=== PATIENT | male | born 1960 | race Caucasian/White ===

== ENCOUNTER 2017-01-25 22:37 | Emergency (ER) | payer BC ==
[2017-01-25] MEDS ORDERED: Sodium Chloride 0.9% 1,000 ML IV ONE (22:56)
[2017-01-25] MEDS ORDERED: Sodium Chloride 0.9% 2.5 ML Syringe FLUSH PRN (22:56)
[2017-01-25] MEDS ORDERED: Sodium Chloride 0.9% 10 ML Syringe FLUSH PRN (22:56)
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
[2017-01-25] MEDS ORDERED: Iopamidol 755 MG/ML 500 ML Multipack Bottle IVPUSH STA (23:19)
[2017-01-26 00:26] LABS: CHLORIDE,CL 106 mmol/L (98-110); SODIUM,NA 139 mmol/L (136-146)
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
[2017-01-26 05:14] VITALS: BP 130/80
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
== END 2017-01-26 00:41 | disposition other institution (70) ==
LOC: MW.ED 22:37
DX: S22.41XA Multiple fractures of ribs, right side, initial encounter for closed fracture (principal); S32.502A Unspecified fracture of left pubis, initial encounter for closed fracture; S42.031A Displaced fracture of lateral end of right clavicle, initial encounter for closed fracture; S01.01XA Laceration without foreign body of scalp, initial encounter; S09.90XA Unspecified injury of head, initial encounter; E66.9 Obesity, unspecified; G43.909 Migraine, unspecified, not intractable, without status migrainosus; Z87.891 Personal history of nicotine dependence; Z68.34 Body mass index [BMI] 34.0-34.9, adult; Z79.82 Long term (current) use of aspirin; V86.59XA Driver of other special all-terrain or other off-road motor vehicle injured in nontraffic accident, initial encounter
CPT/HCPCS: 36415; 70450; 71260; 72125; 74177; 80053; 80305; 81001; 82150; 83690; 84484; 85025; 85610; 93005; 96360; 99285; G0390; G0480; J7040; Q9967

== ENCOUNTER 2017-07-13 12:41 | Emergency (ER) | payer SELFPAY ==
[2017-07-13] MEDS ORDERED: Sodium Chloride 0.9% 2.5 ML Syringe FLUSH PRN (12:55)
[2017-07-13] MEDS ORDERED: Sodium Chloride 0.9% 10 ML Syringe FLUSH PRN (12:55)
[2017-07-13] MEDS ORDERED: Albuterol/Ipratropium 3.0-0.5 MG/3 ML Neb Soln NEB ONE (12:55)
[2017-07-13] MEDS ORDERED: Furosemide 40 MG/4 ML VIAL IVPUSH ONE (13:05)
[2017-07-13] MEDS ORDERED: Sodium Chloride 0.9% 500 ML IV ONE (13:05)
[2017-07-13 13:28] LABS: CHLORIDE,CL 95 mmol/L (98-110); SODIUM,NA 137 mmol/L (136-146)
--- NOTE | 2017-07-13 13:41 | EDM.PDOC ---
ED HPI GENERAL MEDICAL PROBLEM - General Chief Complaint: Respiratory Problem Stated Complaint: short of breathe Time Seen by Provider: 07/13/17 12:54 Source of Information: Reports: Patient History Limitations: Reports: No Limitations - History of Present Illness INITIAL COMMENTS - FREE TEXT/NARRATIVE: History of present illness: []Patient has a history of PEs in the past for the last 5 days has had a cold symptoms with congestion and cough. Review of systems: As per history of present illness and below otherwise all systems reviewed and negative. Past medical history: As per history of present illness and as reviewed below otherwise noncontributory. Surgical history: As per history of present illness and as reviewed below otherwise noncontributory. Social history: No reported history of drug or alcohol abuse. Family history: As per history of present illness and as reviewed below otherwise noncontributory. Physical exam: General: Well developed, well nourished in mild respiratory stress, pallor see vital signs HEENT: Atraumatic, normocephalic, pupils reactive, negative for conjunctival pallor or scleral icterus, mucous membranes moist, throat clear, neck supple, nontender, trachea midline. Lungs: Decreased breath sounds at bases crackles throughout. Heart: S1S2, regular, negative for clicks, rubs, or JVD. 2+ pitting edema bilateral lower extremities Abdomen: Soft, nondistended, nontender. Negative for masses or hepatosplenomegaly. Negative for costovertebral tenderness. Pelvis: Stable nontender. Genitourinary: Deferred. Rectal: Deferred. Extremities: Atraumatic, negative for cords or calf pain. Neurovascular unremarkable. Neuro: Awake, alert, oriented. Cranial nerves II through XII unremarkable. Cerebellum unremarkable. Motor and sensory unremarkable throughout. Exam nonfocal. Diagnostics: []Labs chest x-ray and CT chest ordered bilateral large pulmonary emboli present in left upper consolidated infiltrate. Elevated lactic acid Therapeutics: []IV nebs supplemental oxygen and heparin given in the ED Impression: []Bilateral PEs Plan: []Transfer to ER Dr. Arenas accepts the patient. Definitive disposition and diagnosis as appropriate pending reevaluation and review of above. - Related Data Allergies Allergy/AdvReac Type Severity Reaction Status Date / Time animal dander Allergy Sneezing Verified 07/13/17 12:55 Home Meds: Home Meds Aspirin 1 tab PO DAILY 09/17/15 [History] Past Medical History - Past Health History Medical/Surgical History: Denies Medical/Surgical History HEENT History: Reports: Allergic Rhinitis, Impaired Vision, Other (See Below) Other HEENT History: wears reading glasses, has partial denture but does not wear Cardiovascular History: Reports: None Other Cardiovascular History: "clogged all heart valves" Respiratory History: Reports: Croup, PE Other Respiratory History: PE Gastrointestinal History: Reports: Cirrhosis Genitourinary History: Reports: None Musculoskeletal History: Reports: None Neurological History: Reports: Migraines Psychiatric History: Reports: None Endocrine/Metabolic History: Reports: Obesity/BMI 30+ Hematologic History: Reports: None Immunologic History: Reports: None Oncologic (Cancer) History: Reports: None Dermatologic History: Reports: None - Infectious Disease History Infectious Disease History: Reports: Chicken Pox, Measles, Other (See Below) Other Infectious Disease History: athlete's foot - Past Surgical History Head Surgeries/Procedures: Reports: None HEENT Surgical History: Reports: Oral Surgery GI Surgical History: Reports: Cholecystectomy Social & Family History - Family History Family Medical History: Noncontributory HEENT: Reports: Cataract, Impaired Vision OBGYN: Reports: Endocrine/Metabolic: Reports: Diabetes, type II - Tobacco Use Smoking Status *Q: Former Smoker Years of Tobacco use: 30 Used Tobacco, but Quit: Yes Month Tobacco Last Used: 13 Second Hand Smoke Exposure: Yes - Alcohol Use Days Per Week of Alcohol Use: 4 Number of Drinks Per Day: 4 Total Drinks Per Week: 16 - Recreational Drug Use Recreational Drug Use: Yes Drug Use in Last 12 Months: Yes Recreational Drug Type: Reports: Marijuana/Hashish Recreational Drug Use Frequency: Socially ED ROS GENERAL - Review of Systems Review Of Systems: See Below (See history of present illness) ED EXAM, GENERAL - Physical Exam Exam: See Below (See history of present illness) Course - Vital Signs Last Recorded V/S: Last Vital Signs Temp 99.2 F 07/13/17 14:38 Pulse 113 H 07/13/17 15:30 Resp 22 H 07/13/17 15:30 BP 110/73 07/13/17 15:30 Pulse Ox 95 07/13/17 15:30 - Orders/Labs/Meds Orders: Active Orders 24 hr Category Date Time Status EKG Documentation Completion [RC] STAT Care 07/13/17 12:40 Active RT Aerosol Therapy [RC] ASDIRECTED Care 07/13/17 12:55 Active RT BiPAP/CPAP [RC] ASDIRECTED Care 07/13/17 13:14 Active Ang Chest [CT] Stat Exams 07/13/17 13:41 Taken Chest 1V Frontal [CR] Stat Exams 07/13/17 12:55 Taken BLOOD GAS ARTERIAL [BG] Stat Lab 07/13/17 14:14 Ordered CULTURE BLOOD [BC] Stat Lab 07/13/17 13:00 Received CULTURE BLOOD [BC] Stat Lab 07/13/17 13:33 Received LACTIC ACID,WHOLE BLOOD [BG] Routine Lab 07/13/17 17:26 Ordered Blood Culture x2 Reflex Set [OM.PC] Stat Oth 07/13/17 13:25 Ordered Saline Lock Insert [OM.PC] Stat Oth 07/13/17 12:55 Ordered Labs: Laboratory Tests 07/13/17 07/13/17 07/13/17 Range/Units 13:00 13:00 13:00 WBC 12.71 H (4.0-11.0) K/uL RBC 3.01 L (4.50-5.90) M/uL Hgb 11.4 L (13.0-17.0) g/dL Hct 35.1 L (38.0-50.0) % MCV 116.6 H (80.0-98.0) fL MCH 37.9 H (27.0-32.0) pg MCHC 32.5 (31.0-37.0) g/dL RDW Std Deviation 99.7 H (28.0-62.0) fl RDW Coeff of Jessie 23 H (11.0-15.0) % Plt Count 398 (150-400) K/uL MPV 9.70 (7.40-12.00) fL Neut % (Auto) 78.4 (48.0-80.0) % Lymph % (Auto) 18.0 (16.0-40.0) % [place] % (Auto) 3.0 (0.0-15.0) % Eos % (Auto) 0.4 (0.0-7.0) % Baso % (Auto) 0.2 (0.0-1.5) % Neut # (Auto) 10.0 H (1.4-5.7) K/uL Lymph # (Auto) 2.3 (0.6-2.4) K/uL [place] # (Auto) 0.4 (0.0-0.8) K/uL Eos # (Auto) 0.1 (0.0-0.7) K/uL Baso # (Auto) 0.0 (0.0-0.1) K/uL Nucleated RBC % 0.0 /100WBC Nucleated RBCs # 0 K/uL INR APTT (18.6-31.3) SEC D-Dimer, Quantitative 0.67 H (0.0-0.52) mg/LFEU Lactate (0.20-2.00) mmol/L Sodium 137 (136-146) mmol/L Potassium 2.8 L (3.5-5.1) mmol/L Chloride 95 L (98-110) mmol/L Carbon Dioxide 26 (21-31) mmol/L BUN 12 (6.0-23.0) mg/dL Creatinine 0.8 (0.6-1.5) mg/dL Est Cr Clr Drug Dosing TNP Estimated GFR (MDRD) > 60.0 ml/min Glucose 191 H (60-110) mg/dL Calcium 8.5 L (8.8-10.8) mg/dL Total Bilirubin 2.1 H (0.1-1.5) mg/dL AST 37 (5-40) IU/L ALT 29 (8-54) IU/L Alkaline Phosphatase 176 H (40-150) Troponin I < 0.10 (0.0-0.29) NG/ML B-Natriuretic Peptide (<100) PG/ML Total Protein 6.7 (6.0-8.0) g/dL Albumin 3.1 L (3.5-5.0) g/dL Globulin 3.6 H (2.0-3.5) g/dL Albumin/Globulin Ratio 0.9 L (1.3-2.8) 07/13/17 07/13/17 07/13/17 Range/Units 13:00 13:00 13:00 WBC (4.0-11.0) K/uL RBC (4.50-5.90) M/uL Hgb (13.0-17.0) g/dL Hct (38.0-50.0) % MCV (80.0-98.0) fL MCH (27.0-32.0) pg MCHC (31.0-37.0) g/dL RDW Std Deviation (28.0-62.0) fl RDW Coeff of Jessie (11.0-15.0) % Plt Count (150-400) K/uL MPV (7.40-12.00) fL Neut % (Auto) (48.0-80.0) % Lymph % (Auto) (16.0-40.0) % [place] % (Auto) (0.0-15.0) % Eos % (Auto) (0.0-7.0) % Baso % (Auto) (0.0-1.5) % Neut # (Auto) (1.4-5.7) K/uL Lymph # (Auto) (0.6-2.4) K/uL [place] # (Auto) (0.0-0.8) K/uL Eos # (Auto) (0.0-0.7) K/uL Baso # (Auto) (0.0-0.1) K/uL Nucleated RBC % /100WBC Nucleated RBCs # K/uL INR APTT 27.2 (18.6-31.3) SEC D-Dimer, Quantitative (0.0-0.52) mg/LFEU Lactate 7.8 H (0.20-2.00) mmol/L Sodium (136-146) mmol/L Potassium (3.5-5.1) mmol/L Chloride (98-110) mmol/L Carbon Dioxide (21-31) mmol/L BUN (6.0-23.0) mg/dL Creatinine (0.6-1.5) mg/dL Est Cr Clr Drug Dosing Estimated GFR (MDRD) ml/min Glucose (60-110) mg/dL Calcium (8.8-10.8) mg/dL Total Bilirubin (0.1-1.5) mg/dL AST (5-40) IU/L ALT (8-54) IU/L Alkaline Phosphatase (40-150) Troponin I (0.0-0.29) NG/ML B-Natriuretic Peptide 936 H (<100) PG/ML Total Protein (6.0-8.0) g/dL Albumin (3.5-5.0) g/dL Globulin (2.0-3.5) g/dL Albumin/Globulin Ratio (1.3-2.8) 07/13/17 Range/Units 13:00 WBC (4.0-11.0) K/uL RBC (4.50-5.90) M/uL Hgb (13.0-17.0) g/dL Hct (38.0-50.0) % MCV (80.0-98.0) fL MCH (27.0-32.0) pg MCHC (31.0-37.0) g/dL RDW Std Deviation (28.0-62.0) fl RDW Coeff of Jessie (11.0-15.0) % Plt Count (150-400) K/uL MPV (7.40-12.00) fL Neut % (Auto) (48.0-80.0) % Lymph % (Auto) (16.0-40.0) % [place] % (Auto) (0.0-15.0) % Eos % (Auto) (0.0-7.0) % Baso % (Auto) (0.0-1.5) % Neut # (Auto) (1.4-5.7) K/uL Lymph # (Auto) (0.6-2.4) K/uL [place] # (Auto) (0.0-0.8) K/uL Eos # (Auto) (0.0-0.7) K/uL Baso # (Auto) (0.0-0.1) K/uL Nucleated RBC % /100WBC Nucleated RBCs # K/uL INR 1.18 APTT (18.6-31.3) SEC D-Dimer, Quantitative (0.0-0.52) mg/LFEU Lactate (0.20-2.00) mmol/L Sodium (136-146) mmol/L Potassium (3.5-5.1) mmol/L Chloride (98-110) mmol/L Carbon Dioxide (21-31) mmol/L BUN (6.0-23.0) mg/dL Creatinine (0.6-1.5) mg/dL Est Cr Clr Drug Dosing Estimated GFR (MDRD) ml/min Glucose (60-110) mg/dL Calcium (8.8-10.8) mg/dL Total Bilirubin (0.1-1.5) mg/dL AST (5-40) IU/L ALT (8-54) IU/L Alkaline Phosphatase (40-150) Troponin I (0.0-0.29) NG/ML B-Natriuretic Peptide (<100) PG/ML Total Protein (6.0-8.0) g/dL Albumin (3.5-5.0) g/dL Globulin (2.0-3.5) g/dL Albumin/Globulin Ratio (1.3-2.8) Meds: Medications Discontinued Medications Generic Name Dose Route Start Last Admin Trade Name Freq PRN Reason Stop Dose Admin Albuterol/Ipratropium 3 ml 07/13/17 12:55 07/13/17 13:03 Duoneb 3.0-0.5 Mg/3 Ml NEB 07/13/17 12:56 3 ml ONETIME ONE Administration Furosemide 20 mg 07/13/17 13:05 07/13/17 13:15 Lasix IVPUSH 07/13/17 13:06 20 mg NOW ONE Administration Heparin Sodium (Porcine) 0 units 07/13/17 14:13 07/13/17 14:25 Heparin Sodium IVPUSH 07/13/17 14:14 5,000 units .BOLUS ONE Administration Protocol Sodium Chloride 500 mls @ 999 mls/hr 07/13/17 13:05 07/13/17 13:17 Normal Saline IV 07/13/17 13:35 999 mls/hr .Bolus ONE Administration Heparin Sod,Pork In 0.45% Nacl 25,000 unit in 500 mls @ 0 mls/hr 07/13/17 14: 15 Heparin-1/2ns 25,000 Units/500 IV TITRATE AARON Protocol 12 UNITS/KG/HR Heparin Sod,Pork In 0.45% Nacl 25,000 unit in 500 mls @ 29.304 mls/hr 14:15 07/13/17 14:26 Heparin-1/2ns 25,000 Units/500 IV 18 units/kg/hr TITRATE AARON 29.304 mls/hr Protocol Administration 18 UNITS/KG/HR Iopamidol 50 ml 07/13/17 16:08 07/13/17 16:09 Isovue-370 (76%) IV 07/13/17 16:09 50 ml ONETIME ONE Administration Ondansetron HCl 4 mg 07/13/17 13:43 07/13/17 13:49 Zofran IVPUSH 07/13/17 13:44 4 mg ONETIME ONE Administration Sodium Chloride 10 ml 07/13/17 12:55 07/13/17 13:19 Saline Flush FLUSH 10 ml ASDIRECTED PRN Administration Keep Vein Open Sodium Chloride 2.5 ml 07/13/17 12:55 07/13/17 13:19 Saline Flush FLUSH 2.5 ml ASDIRECTED PRN Administration Keep Vein Open Departure - Departure Time of Disposition: 17:28 Disposition: DC/Tfer to Acute Hospital 02 Condition: Fair Clinical Impression: Bilateral pulmonary embolism - Discharge Information Referrals: Rehana Baird, [employer] [Primary Care Provider] - Forms: ED Department Discharge - My Orders Last 24 Hours: My Active Orders 07/13/17 12:40 EKG Documentation Completion [RC] STAT 07/13/17 12:55 RT Aerosol Therapy [RC] ASDIRECTED Chest 1V Frontal [CR] Stat Saline Lock Insert [OM.PC] Stat 07/13/17 13:00 CULTURE BLOOD [BC] Stat 07/13/17 13:14 RT BiPAP/CPAP [RC] ASDIRECTED 07/13/17 13:25 Blood Culture x2 Reflex Set [OM.PC] Stat 07/13/17 13:33 CULTURE BLOOD [BC] Stat 07/13/17 13:41 Ang Chest [CT] Stat 07/13/17 17:26 LACTIC ACID,WHOLE BLOOD [BG] Routine - Assessment/Plan Last 24 Hours: My Active Orders 07/13/17 12:40 EKG Documentation Completion [RC] STAT 07/13/17 12:55 RT Aerosol Therapy [RC] ASDIRECTED Chest 1V Frontal [CR] Stat Saline Lock Insert [OM.PC] Stat 07/13/17 13:00 CULTURE BLOOD [BC] Stat 07/13/17 13:14 RT BiPAP/CPAP [RC] ASDIRECTED 07/13/17 13:25 Blood Culture x2 Reflex Set [OM.PC] Stat 07/13/17 13:33 CULTURE BLOOD [BC] Stat 07/13/17 13:41 Ang Chest [CT] Stat 07/13/17 17:26 LACTIC ACID,WHOLE BLOOD [BG] Routine
[2017-07-13] MEDS ORDERED: Ondansetron 4 MG/2 ML SDV IVPUSH ONE (13:43)
[2017-07-13] MEDS ORDERED: Heparin Sodium 5,000 Units/ML Vial IVPUSH ONE (14:13)
[2017-07-13] MEDS ORDERED: Heparin Sod,Pork In 0.45% Nacl 25,000 UNIT/500 ML IV.SOLN IV SCH (14:15)
[2017-07-13 16:00] VITALS: BP 110/73
[2017-07-13] MEDS ORDERED: Iopamidol 755 MG/ML 50 ML Bottle IV ONE (16:08)
--- NOTE | 2017-07-14 14:35 | CR ---
EXAM DATE: 07/13/17 PATIENT'S AGE: 57 Patient: AYAZ LANDA Facility: [place], [place] Site . Site : 1960 Study: XRay Chest [id number]/11/2018 1:20:28 PM Ordering Physician: Eric Trinidad Final Report: HISTORY: Pain and shortness of breath. COMPARISON: Chest CT 2015. FINDINGS: Moderate area of consolidation in the left upper lobe may represent pneumonia. An underlying process is not excluded. Rounded opacity in the right lower lobe. Clinical correlation and consider CT of the chest for further evaluation. Heart size and pulmonary vascularity are within normal limits. Dictated by Kym Cortes MD @ Jul 13 2017 2:08PM (Electronic Signature) Report Signed by Proxy. DYAN
--- NOTE | 2017-07-14 14:40 | CT ---
EXAM DATE: 07/13/17 PATIENT'S AGE: 57 Patient: AYAZ LANDA Facility: [place], [place] Site . Site : 1960 Study: CT Chest Angio [id number] 2:10:01 PM Ordering Physician: Eric Trinidad Final Report: INDICATION: Chest pain; shortness of breath; history of pulmonary thromboembolism . Comparison : CT chest with intravenous contrast August 30, 2015. TECHNIQUE: CT chest with intravenous contrast; coronal and sagittal reformats. FINDINGS: Extensive pulmonary thromboembolism bilateral involving the 2nd and 3rd order pulmonary artery branches of all the lobes. No CT evidence of right heart strain. No evidence of reflux of contrast into the inferior vena cava or the hepatic veins. Small pericardial effusion with normal size cardiac silhouette. Extensive consolidation left upper lobe; rule out bronchopneumonia. Infiltrates superior segment left lower lobe and patchy areas of perfusion abnormalities both lungs secondary to pulmonary thromboembolism. No abnormal mediastinal or hilar lymphadenopathy. No evidence of aortic aneurysm or dissection. Limited CT through the upper abdomen reveals geographic fatty infiltration of the liver. IMPRESSION: 1. Extensive pulmonary thromboembolism bilateral without any CT evidence of right heart strain. 2. Consolidation left upper lobe; rule out bronchopneumonia. 3. Patchy areas of consolidation the left lower lobe and multiple areas in the right lung secondary to pulmonary thromboembolism. 4. No evidence of aortic aneurysm or dissection. 5. Geographic fatty infiltration liver. Please note that all CT scans at this facility use dose modulation, iterative reconstruction, and/or weight-based dosing when appropriate to reduce radiation dose to as low as reasonably achievable. Dictated by Abigail Aburto MD @ Jul 13 2017 2:40PM (Electronic Signature) Report Signed by Proxy. DYAN
== END 2017-07-13 15:51 ==
LOC: MW.ED 12:41
DX: I26.99 Other pulmonary embolism without acute cor pulmonale (principal); Z79.82 Long term (current) use of aspirin; Z91.09 Other allergy status, other than to drugs and biological substances; Z87.891 Personal history of nicotine dependence
CPT/HCPCS: 36415; 71045; 71275; 80053; 83605; 83880; 84484; 85025; 85379; 85610; 85730; 87040; 93005; 94640; 94660; 96365; 96375; 99285; J1644; J1940; J2405; J7040; Q9967; 99284

== ENCOUNTER 2018-11-09 12:10 | Emergency (ER) | payer SELFPAY ==
[2018-11-09 12:20] VITALS: BP 115/74
--- NOTE | 2018-11-09 12:26 | EDM.PDOC ---
ED HPI GENERAL MEDICAL PROBLEM - General Chief Complaint: Laceration Stated Complaint: CUT RT INDEX FINGER Time Seen by Provider: 11/09/18 12:14 Source of Information: Reports: Patient History Limitations: Reports: No Limitations - History of Present Illness INITIAL COMMENTS - FREE TEXT/NARRATIVE: History of present illness: []Patient was cutting a brisket last night and sliced his right index finger. Patient is here requesting sutures and a tetanus shot. Review of systems: As per history of present illness and below otherwise all systems reviewed and negative. Past medical history: As per history of present illness and as reviewed below otherwise noncontributory. Surgical history: As per history of present illness and as reviewed below otherwise noncontributory. Social history: No reported history of drug or alcohol abuse. Family history: As per history of present illness and as reviewed below otherwise noncontributory. Physical exam: General: Well developed, well nourished in NAD HEENT: Atraumatic, normocephalic, pupils reactive, negative for conjunctival pallor or scleral icterus, mucous membranes moist, throat clear, neck supple, nontender, trachea midline. Lungs: Clear to auscultation, breath sounds equal bilaterally, chest nontender. Heart: S1S2, regular, negative for clicks, rubs, or JVD. Abdomen: NABS, Soft, nondistended, nontender. Negative for masses or hepatosplenomegaly. Negative for costovertebral tenderness. Pelvis: Stable nontender. Genitourinary: Deferred. Rectal: Deferred. Extremities: Right lateral index finger laceration, no active bleeding or signs of infection, sensation is intact capillary refill is brisk negative for cords or calf pain. Neurovascular unremarkable. Neuro: Awake, alert, oriented. Cranial nerves II through XII unremarkable. Cerebellum unremarkable. Motor and sensory unremarkable throughout. Exam nonfocal. Skin:warm and dry Diagnostics: None Therapeutics: Tetanus status updated, wound greater than 8 hours old is Steri-Stripped, finger splint ED Course: Stable Impression: Finger laceration Prescriptions: None Plan: Take meds as directed, follow up with your primary care physician, return to ER if symptoms worsen or change. Definitive disposition and diagnosis as appropriate pending reevaluation and review of above. right pointer finger Pain Score (Numeric/FACES): 2 - Related Data Allergies Allergy/AdvReac Type Severity Reaction Status Date / Time animal dander Allergy Sneezing Verified 11/09/18 12:20 Home Meds: Home Meds Warfarin [Coumadin] 2 mg PO DAILY 03/23/18 [History] Pantoprazole Sodium 40 mg PO DAILY 30 Days #30 tablet. 04/08/18 [Rx] Warfarin [Coumadin] 1 mg PO DAILY 11/09/18 [History] Past Medical History - Past Health History Medical/Surgical History: Denies Medical/Surgical History HEENT History: Reports: Other (See Below) Other HEENT History: uses reading glasses, has upper denture but doesn't wear it Cardiovascular History: Reports: None Other Cardiovascular History: "clogged all heart valves" Respiratory History: Reports: PE Other Respiratory History: hx of PE x2, has been on Warfarin for 1 year, last one on friday Gastrointestinal History: Reports: Colon Polyp, GERD, Hemorrhoids, Other (See Below) (h/o alchohol abuse and fatty liver) Genitourinary History: Reports: None Musculoskeletal History: Reports: Fracture Other Musculoskeletal History: hx of fx clavicle and rib Neurological History: Reports: Concussion, Migraines Psychiatric History: Reports: None Endocrine/Metabolic History: Reports: Obesity/BMI 30+ Hematologic History: Reports: Blood Transfusion(s) Other Hematologic History: was recently (about 2 weeks ago) transfused 5 units of blood Immunologic History: Reports: None Oncologic (Cancer) History: Reports: None Dermatologic History: Reports: None - Infectious Disease History Infectious Disease History: Reports: Chicken Pox, Measles, Other (See Below) Other Infectious Disease History: athlete's foot - Past Surgical History HEENT Surgical History: Reports: Other (See Below) Other HEENT Surgeries/Procedures: repair of fx nose x3 GI Surgical History: Reports: Cholecystectomy, Colonoscopy (about 2 years ago) Social & Family History - Family History Family Medical History: Noncontributory HEENT: Reports: Cataract, Impaired Vision OBGYN: Reports: Endocrine/Metabolic: Reports: Diabetes, type II - Caffeine Use Caffeine Use: Reports: Coffee, Soda, Tea ED ROS GENERAL - Review of Systems Review Of Systems: ROS reveals no pertinent complaints other than HPI. ED EXAM, SKIN/RASH Exam: See Below Course - Vital Signs Last Recorded V/S: Last Vital Signs Temp 96.5 F 11/09/18 12:18 Pulse 88 11/09/18 12:18 Resp 18 11/09/18 12:18 BP 115/74 11/09/18 12:18 Pulse Ox 94 L 11/09/18 12:18 - Orders/Labs/Meds Orders: Active Orders 24 hr Category Date Time Status Splinting [RC] ASDIRECTED Care 11/09/18 12:26 Active Departure - Departure Time of Disposition: 12:37 Disposition: Home, Self-Care 01 Condition: Good Clinical Impression: Laceration of right index finger Qualifiers: Encounter type: initial encounter Damage to nail status: without damage Foreign body presence: without foreign body Qualified Code(s): S61.210A - Laceration without foreign body of right index finger without damage to nail, initial encounter - Discharge Information *PRESCRIPTION DRUG MONITORING PROGRAM REVIEWED*: No *COPY OF PRESCRIPTION DRUG MONITORING REPORT IN PATIENT OSVALDO: No Instructions: Laceration Care, Adult, [id number] Referrals: PCP,Unknown [Primary Care Provider] - Forms: ED Department Discharge Additional Instructions: The following information is given to patients seen in the emergency department who are being discharged to home. This information is to outline your options for follow-up care. We provide all patients seen in our emergency department with a follow-up referral. The need for follow-up, as well as the timing and circumstances, are variable depending upon the specifics of your emergency department visit. If you don't have a primary care physician on staff, we will provide you with a referral. We always advise you to contact your personal physician following an emergency department visit to inform them of the circumstance of the visit and for follow-up with them and/or the need for any referrals to a consulting specialist. The emergency department will also refer you to a specialist when appropriate. This referral assures that you have the opportunity for follow-up care with a specialist. All of these measure are taken in an effort to provide you with optimal care, which includes your follow-up. Under all circumstances we always encourage you to contact your private physician who remains a resource for coordinating your care. When calling for follow-up care, please make the office aware that this follow-up is from your recent emergency room visit. If for any reason you are refused follow-up, please contact the [facility] Emergency Department at and asked to speak to the emergency department charge nurse. [facility] [address] [place] [id number] - My Orders Last 24 Hours: My Active Orders 11/09/18 12:26 Splinting [RC] ASDIRECTED - Assessment/Plan Last 24 Hours: My Active Orders 11/09/18 12:26 Splinting [RC] ASDIRECTED
== END 2018-11-09 12:50 | disposition home or self-care (01) ==
LOC: MW.ED 12:10
DX: S61.210A Laceration without foreign body of right index finger without damage to nail, initial encounter (principal); E66.9 Obesity, unspecified; Z79.01 Long term (current) use of anticoagulants; Z90.49 Acquired absence of other specified parts of digestive tract; Z91.09 Other allergy status, other than to drugs and biological substances; W26.8XXA Contact with other sharp object(s), not elsewhere classified, initial encounter
CPT/HCPCS: 99282

== ENCOUNTER 2019-04-12 12:43 | Observation (INO) | payer OTHER ==
[2019-04-12] MEDS ORDERED: Sodium Chloride 0.9% 1,000 ML IV ONE ×3 (12:44→15:58)
--- NOTE | 2019-04-12 12:49 | EDM.PDOC ---
ED HPI GENERAL MEDICAL PROBLEM - General Chief Complaint: Gastrointestinal Problem Stated Complaint: VOMITTING Time Seen by Provider: 04/12/19 12:44 Source of Information: Reports: Patient History Limitations: Reports: No Limitations - History of Present Illness INITIAL COMMENTS - FREE TEXT/NARRATIVE: HISTORY AND PHYSICAL: History of present illness: Patient is a 58-year-old male who presents to the emergency room with complaints of nausea and vomiting 5 days. He reports that over the past 5 days he has not been able to keep "anything down". Reports a constant sense of nausea and vomiting after eating or drinking anything. She did have a small bowel movement yesterday although reports it as "not normal". Complains of mild diffuse abdominal pain, nonspecific. Patient denies any fever, chills, headache , change in vision, syncope or near syncope. Denies any chest pain, back pain, shortness of breath or cough. Denies any diarrhea, constipation or dysuria. Has not noted any blood in urine or stool. Review of systems: As per history of present illness and below otherwise all systems reviewed and negative. Past medical history: As per history of present illness and as reviewed below otherwise noncontributory. Surgical history: As per history of present illness and as reviewed below otherwise noncontributory. Social history: See social history for further information Family history: As per history of present illness and as reviewed below otherwise noncontributory. Physical exam: General: Well developed and well-nourished 58 children male. Alert and oriented. Nontoxic appearing and in no acute distress. HEENT: Atraumatic, normocephalic, pupils equal and reactive bilaterally, negative for conjunctival pallor or scleral icterus, mucous membranes moist, trachea midline. No drooling or trismus noted. No meningeal signs. No hot potato voice noted. Lungs: Clear to auscultation, breath sounds equal bilaterally, chest nontender. Heart: S1S2, regular rate and rhythm without overt murmur Abdomen: Soft, nondistended, nontender. Negative for masses or hepatosplenomegaly. Negative for costovertebral tenderness. Pelvis: Stable nontender. Skin: Intact, warm, dry. No lesions or rashes noted. Extremities: Atraumatic, moves all extremities per self without difficulty or deficits, negative for cords or calf pain. Neurovascular unremarkable. Neuro: Awake, alert, oriented. Cranial nerves II through XII unremarkable. Cerebellum unremarkable. Motor and sensory unremarkable throughout. Exam nonfocal. Notes: The electrolytes are abnormal. This is likely due to to his persistent vomiting. Since being here; he has not had any vomiting. Dr Bautista was consulted on this case; he is agreeable to keeping this patient for observation. Patient is aware and agreeable. Diagnostics: CBC, CMP, Lipase, UA, CT abd/pelvis Therapeutics: IV fluids, zofran, 40meq K+ rider Impression: Gastritis Hypokalemia Plan: Observation admission Definitive disposition and diagnosis as appropriate pending reevaluation and review of above. - Related Data Allergies Allergy/AdvReac Type Severity Reaction Status Date / Time animal dander Allergy Sneezing Verified 04/12/19 13:11 Home Meds: Home Meds Warfarin [Coumadin] 2 mg PO DAILY 03/23/18 [History] Pantoprazole Sodium 40 mg PO DAILY 30 Days #30 tablet. 04/08/18 [Rx] Warfarin [Coumadin] 1 mg PO DAILY 11/09/18 [History] Past Medical History - Past Health History Medical/Surgical History: Denies Medical/Surgical History HEENT History: Reports: Other (See Below) Other HEENT History: uses reading glasses, has upper denture but doesn't wear it Cardiovascular History: Reports: None Other Cardiovascular History: "clogged all heart valves" Respiratory History: Reports: PE Other Respiratory History: hx of PE x2, has been on Warfarin for 1 year, last one on friday Gastrointestinal History: Reports: Colon Polyp, GERD, Hemorrhoids, Other (See Below) (h/o alchohol abuse and fatty liver) Genitourinary History: Reports: None Musculoskeletal History: Reports: Fracture Other Musculoskeletal History: hx of fx clavicle and rib Neurological History: Reports: Concussion, Migraines Psychiatric History: Reports: None Endocrine/Metabolic History: Reports: Obesity/BMI 30+ Hematologic History: Reports: Blood Transfusion(s) Other Hematologic History: was recently (about 2 weeks ago) transfused 5 units of blood Immunologic History: Reports: None Oncologic (Cancer) History: Reports: None Dermatologic History: Reports: None - Infectious Disease History Infectious Disease History: Reports: Chicken Pox, Measles, Other (See Below) Other Infectious Disease History: athlete's foot - Past Surgical History HEENT Surgical History: Reports: Other (See Below) Other HEENT Surgeries/Procedures: repair of fx nose x3 GI Surgical History: Reports: Cholecystectomy, Colonoscopy (about 2 years ago) Social & Family History - Family History Family Medical History: Noncontributory HEENT: Reports: Cataract, Impaired Vision OBGYN: Reports: Endocrine/Metabolic: Reports: Diabetes, type II - Caffeine Use Caffeine Use: Reports: Coffee, Soda, Tea ED ROS GENERAL - Review of Systems Review Of Systems: ROS reveals no pertinent complaints other than HPI. ED EXAM, GI/ABD - Physical Exam Exam: See Below (See dictation) Course - Vital Signs Last Recorded V/S: Last Vital Signs Temp 96.3 F 04/12/19 13:11 Pulse 71 04/12/19 15:01 Resp 16 04/12/19 15:01 BP 114/79 04/12/19 15:01 Pulse Ox 97 04/12/19 15:01 - Orders/Labs/Meds Orders: Active Orders 24 hr Category Date Time Status Admission Status [Patient Status] [ADT] Stat ADT 04/12/19 14:39 Active Cardiac Monitoring [RC] CONTINUOUS Care 04/12/19 15:02 Active EKG Documentation Completion [RC] STAT Care 04/12/19 14:13 Active Intake and Output [RC] QSHIFT Care 04/12/19 15:02 Active Oxygen Therapy [RC] PRN Care 04/12/19 15:02 Active Up ad Anais [RC] ASDIRECTED Care 04/12/19 15:02 Active VTE/DVT Education [RC] PER UNIT ROUTINE Care 04/12/19 15:02 Active Vital Signs [RC] Q4H Care 04/12/19 15:02 Active Nothing per Oral Now Diet [DIET] Diet 04/12/19 Dinner Active UA RFX JOVANNI AND CULT IF INDIC [URIN] Stat Lab 04/12/19 12:44 Ordered Morphine Med 04/12/19 15:02 Active 2 mg IVPUSH Q2H PRN Ondansetron [Zofran ODT] Med 04/12/19 15:02 Active 4 mg PO Q4H PRN Ondansetron [Zofran] Med 04/12/19 15:02 Active 4 mg IVPUSH Q4H PRN Potassium Chloride 40 meq Med 04/12/19 14:50 Active Sodium Chloride 0.9% [Normal Saline] 250 ml IV ONETIME Sodium Chloride 0.9% [Normal Saline] 1,000 ml Med 04/12/19 14:44 Active IV STAT Resuscitation Status Routine Resus Stat 04/12/19 15:02 Ordered Medication Orders Potassium Chloride 40 meq/ (Sodium Chloride) 270 mls @ 67.5 mls/hr IV ONETIME ONE Stop: 04/12/19 18:49 Last Admin: 04/12/19 14:51 Dose: 67.5 mls/hr Sodium Chloride (Normal Saline) 1,000 mls @ 150 mls/hr IV STAT ONE Stop: 04/12/19 21:23 Last Admin: 04/12/19 14:51 Dose: 150 mls/hr Magnesium Sulfate 4 gm/ Premix 100 mls @ 25 mls/hr IV ONETIME ONE Stop: 04/12/19 19:04 Potassium Chloride 40 meq/ (Premix) 100 mls @ 25 mls/hr IV ONETIME ONE Stop: 04/12/19 21:59 Pantoprazole Sodium 40 mg/ (Sodium Chloride) 10 mls @ 300 mls/hr IV Q24H AARON Morphine Sulfate (Morphine) 2 mg IVPUSH Q2H PRN PRN Reason: Pain (severe 7-10) Stop: 04/13/19 15:03 Ondansetron HCl (Zofran) 4 mg IVPUSH Q4H PRN PRN Reason: Nausea Ondansetron HCl (Zofran Odt) 4 mg PO Q4H PRN PRN Reason: nausea, able to take PO Labs: Laboratory Tests 04/12/19 04/12/19 04/12/19 Range/Units 13:20 13:20 13:20 WBC 9.46 (4.0-11.0) K/uL RBC 4.97 (4.50-5.90) M/uL Hgb 16.5 (13.0-17.0) g/dL Hct 45.9 (38.0-50.0) % MCV 92.4 (80.0-98.0) fL MCH 33.2 H (27.0-32.0) pg MCHC 35.9 (31.0-37.0) g/dL RDW Std Deviation 43.4 (28.0-62.0) fl RDW Coeff of Jessie 13 (11.0-15.0) % Plt Count 198 (150-400) K/uL MPV 9.30 (7.40-12.00) fL Neut % (Auto) 70.5 (48.0-80.0) % Lymph % (Auto) 18.9 (16.0-40.0) % Hale % (Auto) 8.2 (0.0-15.0) % Eos % (Auto) 2.0 (0.0-7.0) % Baso % (Auto) 0.4 (0.0-1.5) % Neut # (Auto) 6.7 H (1.4-5.7) K/uL Lymph # (Auto) 1.8 (0.6-2.4) K/uL Hale # (Auto) 0.8 (0.0-0.8) K/uL Eos # (Auto) 0.2 (0.0-0.7) K/uL Baso # (Auto) 0.0 (0.0-0.1) K/uL Nucleated RBC % 0.0 /100WBC Nucleated RBCs # 0 K/uL INR 1.63 Sodium 136 (136-148) mmol/L Potassium 2.4 L* (3.5-5.1) mmol/L Chloride 95 L (98-107) mmol/L Carbon Dioxide 29.2 (21.0-32.0) mmol/L BUN 5 L (7.0-18.0) mg/dL Creatinine 1.0 (0.8-1.3) mg/dL Est Cr Clr Drug Dosing 72.66 mL/min Estimated GFR (MDRD) > 60.0 ml/min Glucose 137 H (74-106) mg/dL Calcium 7.7 L (8.5-10.1) mg/dL Phosphorus (2.6-4.7) mg/dL Magnesium (1.8-2.4) mg/dL Total Bilirubin 1.1 H (0.2-1.0) mg/dL AST 29 (15-37) IU/L ALT 18 (14-63) IU/L Alkaline Phosphatase 177 H (46-116) U/L Total Protein 7.3 (6.4-8.2) g/dL Albumin 2.9 L (3.4-5.0) g/dL Globulin 4.4 H (2.6-4.0) g/dL Albumin/Globulin Ratio 0.7 L (0.9-1.6) Lipase 135 (73-393) U/L 04/12/19 04/12/19 Range/Units 13:20 13:20 WBC (4.0-11.0) K/uL RBC (4.50-5.90) M/uL Hgb (13.0-17.0) g/dL Hct (38.0-50.0) % MCV (80.0-98.0) fL MCH (27.0-32.0) pg MCHC (31.0-37.0) g/dL RDW Std Deviation (28.0-62.0) fl RDW Coeff of Jessie (11.0-15.0) % Plt Count (150-400) K/uL MPV (7.40-12.00) fL Neut % (Auto) (48.0-80.0) % Lymph % (Auto) (16.0-40.0) % Hale % (Auto) (0.0-15.0) % Eos % (Auto) (0.0-7.0) % Baso % (Auto) (0.0-1.5) % Neut # (Auto) (1.4-5.7) K/uL Lymph # (Auto) (0.6-2.4) K/uL Hale # (Auto) (0.0-0.8) K/uL Eos # (Auto) (0.0-0.7) K/uL Baso # (Auto) (0.0-0.1) K/uL Nucleated RBC % /100WBC Nucleated RBCs # K/uL INR Sodium (136-148) mmol/L Potassium (3.5-5.1) mmol/L Chloride (98-107) mmol/L Carbon Dioxide (21.0-32.0) mmol/L BUN (7.0-18.0) mg/dL Creatinine (0.8-1.3) mg/dL Est Cr Clr Drug Dosing mL/min Estimated GFR (MDRD) ml/min Glucose (74-106) mg/dL Calcium (8.5-10.1) mg/dL Phosphorus 2.1 L (2.6-4.7) mg/dL Magnesium 1.1 L (1.8-2.4) mg/dL Total Bilirubin (0.2-1.0) mg/dL AST (15-37) IU/L ALT (14-63) IU/L Alkaline Phosphatase (46-116) U/L Total Protein (6.4-8.2) g/dL Albumin (3.4-5.0) g/dL Globulin (2.6-4.0) g/dL Albumin/Globulin Ratio (0.9-1.6) Lipase (73-393) U/L Meds: Medications Generic Name Dose Route Start Last Admin Trade Name Freq PRN Reason Stop Dose Admin Potassium Chloride 40 meq/ 270 mls @ 67.5 mls/hr 04/12/19 14:50 04/12/19 14: 51 Sodium Chloride IV 04/12/19 18:49 67.5 mls/hr ONETIME ONE Administration Sodium Chloride 1,000 mls @ 150 mls/hr 04/12/19 14:44 04/12/19 14:51 Normal Saline IV 04/12/19 21:23 150 mls/hr STAT ONE Administration Magnesium Sulfate 4 gm/ Premix 100 mls @ 25 mls/hr 04/12/19 15:05 IV 04/12/19 19:04 ONETIME ONE Potassium Chloride 40 meq/ 100 mls @ 25 mls/hr 04/12/19 18:00 Premix IV 04/12/19 21:59 ONETIME ONE Pantoprazole Sodium 40 mg/ 10 mls @ 300 mls/hr 04/12/19 15:15 Sodium Chloride IV Q24H AARON Morphine Sulfate 2 mg 04/12/19 15:02 Morphine IVPUSH 04/13/19 15:03 Q2H PRN Pain (severe 7-10) Ondansetron HCl 4 mg 04/12/19 15:02 Zofran IVPUSH Q4H PRN Nausea Ondansetron HCl 4 mg 04/12/19 15:02 Zofran Odt PO Q4H PRN nausea, able to take PO Discontinued Medications Generic Name Dose Route Start Last Admin Trade Name Freq PRN Reason Stop Dose Admin Sodium Chloride 1,000 mls @ 999 mls/hr 04/12/19 12:44 04/12/19 13:23 Normal Saline IV 04/12/19 13:44 999 mls/hr STAT ONE Administration Ondansetron HCl 4 mg 04/12/19 13:37 04/12/19 13:44 Zofran IVPUSH 04/12/19 13:38 4 mg ONETIME ONE Administration Departure - Departure Time of Disposition: 15:36 Disposition: Refer to Observation Clinical Impression: Hypokalemia Gastritis Qualifiers: Gastritis type: unspecified gastritis Chronicity: acute Gastritis bleeding: without bleeding Qualified Code(s): K29.00 - Acute gastritis without bleeding - Discharge Information - My Orders Last 24 Hours: My Active Orders 04/12/19 12:44 UA RFX JOVANNI AND CULT IF INDIC [URIN] Stat 04/12/19 14:13 EKG Documentation Completion [RC] STAT 04/12/19 14:39 Admission Status [Patient Status] [ADT] Stat 04/12/19 14:44 Sodium Chloride 0.9% [Normal Saline] 1,000 ml IV STAT 04/12/19 14:50 Potassium Chloride 40 meq Sodium Chloride 0.9% [Normal Saline] 250 ml IV ONETIME - Assessment/Plan Last 24 Hours: My Active Orders 04/12/19 12:44 UA RFX JOVANNI AND CULT IF INDIC [URIN] Stat 04/12/19 14:13 EKG Documentation Completion [RC] STAT 04/12/19 14:39 Admission Status [Patient Status] [ADT] Stat 04/12/19 14:44 Sodium Chloride 0.9% [Normal Saline] 1,000 ml IV STAT 04/12/19 14:50 Potassium Chloride 40 meq Sodium Chloride 0.9% [Normal Saline] 250 ml IV ONETIME
[2019-04-12] MEDS ORDERED: Ondansetron 4 MG/2 ML SDV IVPUSH ONE (13:37)
[2019-04-12 13:48] LABS: BLOOD UREA NITROGEN,BUN 5 mg/dL (7.0-18.0); GLUCOSE RANDOM 137 mg/dL (74-106); LIPASE 135 U/L (73-393); SODIUM,NA 136 mmol/L (136-148)
[2019-04-12 14:02] LABS: CARBON DIOXIDE,CO2 29.2 mmol/L (21.0-32.0)
[2019-04-12 14:07] LABS: CHLORIDE,CL 95 mmol/L (98-107); POTASSIUM,K 2.4 mmol/L (3.5-5.1)
[2019-04-12] MEDS ORDERED: Potassium Chloride Riders 40 MEQ in Premix Bag 1 BAG IV ONE ×3 (14:13→18:00)
[2019-04-12] MEDS ORDERED: Morphine 10 MG/ML Syringe IVPUSH PRN (15:02)
[2019-04-12] MEDS ORDERED: Ondansetron 4 MG Tab.DIS PO PRN (15:02)
[2019-04-12] MEDS ORDERED: Magnesium Sulfate/Water 4 GM in Premix Bag 1 BAG IV ONE (15:05)
[2019-04-12] MEDS ORDERED: Pantoprazole 40 MG in Sodium Chloride 0.9% 10 ML IV SCH (15:15)
--- NOTE | 2019-04-12 15:28 | PCM.HP.2 ---
H&P History of Present Illness - General Date of Service: 04/12/19 Admit Problem/Dx: Admission Diagnosis/Problem Admission Diagnosis/Problem Hypokalemia, gastrointestinal losses - History of Present Illness Initial Comments - Free Text/Narative: 58 y/o male wit history of previous PE on warfarin who presented to the ER complaining of nausea, vomiting for the past 5 days. Patient states he drinks on a a daily basis a couple shots and that he stopped drinking 5 days ago after starting vomiting. No hematemesis. Has not been able to keep fluids, food down. states that everything comes up. No chest pain, dyspnea, abdominal pain, dysuria , diarrhea, constipation, blood in stool. No lower extremity swelling. Has been passing gas. States that few days ago he had a supratherapeutic INR>11, now 1.6. In the ER, he was found to be hypokalemic, hypomagnesemic. CT abdomen did not show any small bowel obstruction. It did mention likely worsening fatty liver. - Related Data Allergies/Adverse Reactions: Allergies Allergy/AdvReac Type Severity Reaction Status Date / Time animal dander Allergy Sneezing Verified 04/12/19 13:11 Home Medications: Home Meds Warfarin [Coumadin] 2 mg PO DAILY 03/23/18 [History] Pantoprazole Sodium 40 mg PO DAILY 30 Days #30 tablet. 04/08/18 [Rx] Warfarin [Coumadin] 1 mg PO DAILY 11/09/18 [History] Past Medical History - Past Health History Medical/Surgical History: Denies Medical/Surgical History HEENT History: Reports: Other (See Below) Other HEENT History: uses reading glasses, has upper denture but doesn't wear it Cardiovascular History: Reports: None Other Cardiovascular History: "clogged all heart valves" Respiratory History: Reports: PE Other Respiratory History: hx of PE x2, has been on Warfarin for 1 year, last one on friday Gastrointestinal History: Reports: Colon Polyp, GERD, Hemorrhoids, Other (See Below) (h/o alchohol abuse and fatty liver) Genitourinary History: Reports: None Musculoskeletal History: Reports: Fracture Other Musculoskeletal History: hx of fx clavicle and rib Neurological History: Reports: Concussion, Migraines Psychiatric History: Reports: None Endocrine/Metabolic History: Reports: Obesity/BMI 30+ Hematologic History: Reports: Blood Transfusion(s) Other Hematologic History: was recently (about 2 weeks ago) transfused 5 units of blood Immunologic History: Reports: None Oncologic (Cancer) History: Reports: None Dermatologic History: Reports: None - Infectious Disease History Infectious Disease History: Reports: Chicken Pox, Measles, Other (See Below) Other Infectious Disease History: athlete's foot - Past Surgical History HEENT Surgical History: Reports: Other (See Below) Other HEENT Surgeries/Procedures: repair of fx nose x3 GI Surgical History: Reports: Cholecystectomy, Colonoscopy (about 2 years ago) Social & Family History - Family History Family Medical History: Noncontributory HEENT: Reports: Cataract, Impaired Vision OBGYN: Reports: Endocrine/Metabolic: Reports: Diabetes, type II - Tobacco Use Smoking Status *Q: Former Smoker Used Tobacco, but Quit: Yes Month/Year Tobacco Last Used: 13year - Caffeine Use Caffeine Use: Reports: Coffee, Soda, Tea - Recreational Drug Use Recreational Drug Use: No H&P Review of Systems - Review of Systems: Review Of Systems: ROS reveals no pertinent complaints other than HPI. Exam - Exam Exam: See Below - Vital Signs Vital Signs: Last Vital Signs Temp 35.7 C 04/12/19 13:11 Pulse 71 04/12/19 15:01 Resp 16 04/12/19 15:01 BP 114/79 04/12/19 15:01 Pulse Ox 97 04/12/19 15:01 Weight: 81.647 kg - Exam General: Alert, Oriented, Cooperative HEENT: Other (dry oral mucosa) Lungs: Clear to Auscultation, Normal Respiratory Effort. No: Crackles, Wheezing Cardiovascular: Regular Rate, Regular Rhythm GI/Abdominal Exam: Other (hypoactive bowel sounds, non distended, non tender) Extremities: No Pedal Edema Skin: Warm, Dry - Patient Data Lab Results Last 24 hrs: Laboratory Results - last 24 hr 04/12/19 04/12/19 04/12/19 Range/Units 13:20 13:20 13:20 WBC 9.46 (4.0-11.0) K/uL RBC 4.97 (4.50-5.90) M/uL Hgb 16.5 (13.0-17.0) g/dL Hct 45.9 (38.0-50.0) % MCV 92.4 (80.0-98.0) fL MCH 33.2 H (27.0-32.0) pg MCHC 35.9 (31.0-37.0) g/dL RDW Std Deviation 43.4 (28.0-62.0) fl RDW Coeff of Jessie 13 (11.0-15.0) % Plt Count 198 (150-400) K/uL MPV 9.30 (7.40-12.00) fL Neut % (Auto) 70.5 (48.0-80.0) % Lymph % (Auto) 18.9 (16.0-40.0) % [place] % (Auto) 8.2 (0.0-15.0) % Eos % (Auto) 2.0 (0.0-7.0) % Baso % (Auto) 0.4 (0.0-1.5) % Neut # (Auto) 6.7 H (1.4-5.7) K/uL Lymph # (Auto) 1.8 (0.6-2.4) K/uL [place] # (Auto) 0.8 (0.0-0.8) K/uL Eos # (Auto) 0.2 (0.0-0.7) K/uL Baso # (Auto) 0.0 (0.0-0.1) K/uL Nucleated RBC % 0.0 /100WBC Nucleated RBCs # 0 K/uL INR 1.63 Sodium 136 (136-148) mmol/L Potassium 2.4 L* (3.5-5.1) mmol/L Chloride 95 L (98-107) mmol/L Carbon Dioxide 29.2 (21.0-32.0) mmol/L BUN 5 L (7.0-18.0) mg/dL Creatinine 1.0 (0.8-1.3) mg/dL Est Cr Clr Drug Dosing 72.66 mL/min Estimated GFR (MDRD) > 60.0 ml/min Glucose 137 H (74-106) mg/dL Calcium 7.7 L (8.5-10.1) mg/dL Phosphorus (2.6-4.7) mg/dL Magnesium (1.8-2.4) mg/dL Total Bilirubin 1.1 H (0.2-1.0) mg/dL AST 29 (15-37) IU/L ALT 18 (14-63) IU/L Alkaline Phosphatase 177 H (46-116) U/L Total Protein 7.3 (6.4-8.2) g/dL Albumin 2.9 L (3.4-5.0) g/dL Globulin 4.4 H (2.6-4.0) g/dL Albumin/Globulin Ratio 0.7 L (0.9-1.6) Lipase 135 (73-393) U/L 04/12/19 04/12/19 Range/Units 13:20 13:20 WBC (4.0-11.0) K/uL RBC (4.50-5.90) M/uL Hgb (13.0-17.0) g/dL Hct (38.0-50.0) % MCV (80.0-98.0) fL MCH (27.0-32.0) pg MCHC (31.0-37.0) g/dL RDW Std Deviation (28.0-62.0) fl RDW Coeff of Jessie (11.0-15.0) % Plt Count (150-400) K/uL MPV (7.40-12.00) fL Neut % (Auto) (48.0-80.0) % Lymph % (Auto) (16.0-40.0) % [place] % (Auto) (0.0-15.0) % Eos % (Auto) (0.0-7.0) % Baso % (Auto) (0.0-1.5) % Neut # (Auto) (1.4-5.7) K/uL Lymph # (Auto) (0.6-2.4) K/uL [place] # (Auto) (0.0-0.8) K/uL Eos # (Auto) (0.0-0.7) K/uL Baso # (Auto) (0.0-0.1) K/uL Nucleated RBC % /100WBC Nucleated RBCs # K/uL INR Sodium (136-148) mmol/L Potassium (3.5-5.1) mmol/L Chloride (98-107) mmol/L Carbon Dioxide (21.0-32.0) mmol/L BUN (7.0-18.0) mg/dL Creatinine (0.8-1.3) mg/dL Est Cr Clr Drug Dosing mL/min Estimated GFR (MDRD) ml/min Glucose (74-106) mg/dL Calcium (8.5-10.1) mg/dL Phosphorus 2.1 L (2.6-4.7) mg/dL Magnesium 1.1 L (1.8-2.4) mg/dL Total Bilirubin (0.2-1.0) mg/dL AST (15-37) IU/L ALT (14-63) IU/L Alkaline Phosphatase (46-116) U/L Total Protein (6.4-8.2) g/dL Albumin (3.4-5.0) g/dL Globulin (2.6-4.0) g/dL Albumin/Globulin Ratio (0.9-1.6) Lipase (73-393) U/L Result Diagrams: 04/12/19 13:20 04/12/19 13:20 Problem List Initiated/Reviewed/Updated: Yes Orders Last 24hrs: Active Orders 24 hr Category Date Time Status Admission Status [Patient Status] [ADT] Stat ADT 04/12/19 14:39 Active Cardiac Monitoring [RC] CONTINUOUS Care 04/12/19 15:02 Active EKG Documentation Completion [RC] STAT Care 04/12/19 14:13 Active Intake and Output [RC] QSHIFT Care 04/12/19 15:02 Active Oxygen Therapy [RC] PRN Care 04/12/19 15:02 Active Up ad Anais [RC] ASDIRECTED Care 04/12/19 15:02 Active VTE/DVT Education [RC] PER UNIT ROUTINE Care 04/12/19 15:02 Active Vital Signs [RC] Q4H Care 04/12/19 15:02 Active Nothing per Oral Now Diet [DIET] Diet 04/12/19 Dinner Active Abdomen Pelvis w Cont [CT] Stat Exams 04/12/19 13:24 Taken UA RFX JOVANNI AND CULT IF INDIC [URIN] Stat Lab 04/12/19 12:44 Ordered Magnesium Sulfate/Water [Magnesium Sulfate in Water Med 04/12/19 15:05 Active Premix] 4 gm Premix Bag 1 bag IV ONETIME Morphine Med 04/12/19 15:02 Active 2 mg IVPUSH Q2H PRN Ondansetron [Zofran ODT] Med 04/12/19 15:02 Active 4 mg PO Q4H PRN Ondansetron [Zofran] Med 04/12/19 15:02 Active 4 mg IVPUSH Q4H PRN Pantoprazole [ProTONIX IV] 40 mg Med 04/12/19 15:15 Active Sodium Chloride 0.9% [Normal Saline] 10 ml IV Q24H Potassium Chloride 40 meq Med 04/12/19 14:50 Active Sodium Chloride 0.9% [Normal Saline] 250 ml IV ONETIME Potassium Chloride Riders [KCL 40 MEQ in Water 100 ML] Med 04/12/19 18:00 Active 40 meq Premix Bag 1 bag IV ONETIME Sodium Chloride 0.9% [Normal Saline] 1,000 ml Med 04/12/19 14:44 Active IV STAT Resuscitation Status Routine Resus Stat 04/12/19 15:02 Ordered Medication Orders Potassium Chloride 40 meq/ (Sodium Chloride) 270 mls @ 67.5 mls/hr IV ONETIME ONE Stop: 04/12/19 18:49 Last Admin: 04/12/19 14:51 Dose: 67.5 mls/hr Sodium Chloride (Normal Saline) 1,000 mls @ 150 mls/hr IV STAT ONE Stop: 04/12/19 21:23 Last Admin: 04/12/19 14:51 Dose: 150 mls/hr Magnesium Sulfate 4 gm/ Premix 100 mls @ 25 mls/hr IV ONETIME ONE Stop: 04/12/19 19:04 Potassium Chloride 40 meq/ (Premix) 100 mls @ 25 mls/hr IV ONETIME ONE Stop: 04/12/19 21:59 Pantoprazole Sodium 40 mg/ (Sodium Chloride) 10 mls @ 300 mls/hr IV Q24H AARON Morphine Sulfate (Morphine) 2 mg IVPUSH Q2H PRN PRN Reason: Pain (severe 7-10) Stop: 04/13/19 15:03 Ondansetron HCl (Zofran) 4 mg IVPUSH Q4H PRN PRN Reason: Nausea Ondansetron HCl (Zofran Odt) 4 mg PO Q4H PRN PRN Reason: nausea, able to take PO Assessment/Plan Comment:: A: 1. Intractable nausea, vomiting 2. Hypokalemia 3. Hypomagnesemia 4. PMH Pulmonary embolism on warfarin P: 1. Will keep NPO for now. Will bolus with NS x1 and then maintenance at 125 ml/ hr. Zofran IV PRN for nausea. Likely gastritis due to chronic alcohol intake. Will start protonix IV Q24H. CIWA monitoring. Replace electrolytes and start full dose lovenox to bridge due to NPO status. dispo:2-3 days.
--- NOTE | 2019-04-12 15:30 | CT ---
EXAM DATE: 04/12/19 PATIENT'S AGE: 58 CT abdomen and pelvis Technique: Multiple axial sections were obtained from above the dome of the diaphragm inferiorly through the pubic symphysis. Intravenous contrast was utilized. No oral contrast has been given. Comparison: Previous CT abdomen and pelvis exam of 04/06/18. Findings: Very heterogeneous enhancement is noted of both right and left lobes of the liver. This is more prominent than on prior exam. Small cyst is noted within the upper liver measuring 1.6 cm which is stable. Spleen appears within normal limits. Visualized lung bases show nothing acute. Adrenal glands show no nodule. Kidneys show symmetric contrast enhancement without hydronephrosis or mass. Surgical clips are seen from prior cholecystectomy. Pancreas appears normal. Atherosclerotic calcification is seen within the aorta. No retroperitoneal adenopathy or mesenteric abnormalities are seen. Pancreas is within normal limits. Surgical clips are seen from prior cholecystectomy. No retroperitoneal adenopathy or mesenteric abnormalities are seen. Appendix is seen which is normal. Diffuse diverticuli seen within the colon without inflammatory change of diverticulitis. No pelvic mass or adenopathy is seen. Bladder wall is slightly prominent believed to represent underdistention. Bone window settings were reviewed which appear within normal limits for the patient's age. Impression: 1. Increasing heterogeneous enhancement of both right and left lobes the liver from prior exam. This could represent increasing fatty infiltration although other etiology cannot be excluded. Consider liver biopsy to further evaluate. 2. Stable cyst within the liver. 3. Other findings as noted above believed to be incidental. No acute abnormality is otherwise seen on CT study of the abdomen and pelvis. Diagnostic code #9 Report Signed by Proxy. [facility]
[2019-04-12] MEDS ORDERED: LORazepam 2 MG/ML SDV IVPUSH PRN (17:16)
[2019-04-12] MEDS ORDERED: Iopamidol 755 MG/ML 500 ML Multipack Bottle IVPUSH STA (17:55)
[2019-04-12] MEDS: Enoxaparin 40 MG/0.4 ML Syringe SUBCUT SCH ×2 (17:59→20:33)
[2019-04-12] MEDS: Ondansetron 4 MG/2 ML SDV IVPUSH PRN ×2 (17:59→22:13)
[2019-04-12] MEDS ORDERED: Thiamine 100 MG Tab PO SCH (21:00)
[2019-04-12] MEDS ORDERED: Folic Acid 1 MG Tab PO SCH (21:00)
[2019-04-12] MEDS ORDERED: diphenhydrAMINE 25 MG Cap PO ONE (21:30)
[2019-04-12] MEDS ORDERED: Morphine 2 MG/ML Syringe IVPUSH PRN (23:19)
[2019-04-12] MEDS: Sodium Chloride 0.9% 1,000 ML IV SCH (23:20)
[2019-04-13] MEDS ORDERED: 25% Dextrose in Water 10 ML Syringe IVPUSH ONE (06:11)
[2019-04-13 06:48] LABS: BLOOD UREA NITROGEN,BUN 1 mg/dL (7.0-18.0); CARBON DIOXIDE,CO2 24.9 mmol/L (21.0-32.0); CHLORIDE,CL 105 mmol/L (98-107); GLUCOSE RANDOM 86 mg/dL (74-106); POTASSIUM,K 3.2 mmol/L (3.5-5.1); SODIUM,NA 141 mmol/L (136-148)
[2019-04-13] MEDS: Insulin Aspart 100 Units/ML 3 ML Pen SUBCUT SCH ×2 (06:54→13:33)
[2019-04-13] MEDS ORDERED: Potassium Phosphates 30 MMOLE in Sodium Chloride 0.9% 500 ML IV ONE (08:05)
[2019-04-13] MEDS: Sodium Chloride 0.9% 1,000 ML IV SCH (08:24)
[2019-04-13] MEDS: Enoxaparin 40 MG/0.4 ML Syringe SUBCUT SCH (08:31)
--- NOTE | 2019-04-13 13:38 | PCM.DCSUM1 ---
<Sridhar Cox - Last Filed: 04/13/19 17:54> Discharge Summary - Hospital Course Free Text/Narrative:: 58 y/o male who presented to the ER complaining of nausea, vomiting for the past 5 days. He states he last drank about 5 days ago and has not been able to keep food, fluids down. In the ER, he was found to be dehydrated and had hypokalemia, hypomagnesemia and hypophosphatemia. Electrolytes were replaced, however, phosphate was improved but still low at 1.5. Patient was tolerating PO intake. No more nausea or vomiting. He wanted to go home to take care of her mother. He was discharged home on Neutra-phos 250 mg PO QID for 5 days. In addition, he was advised to abstain from alcohol. He will follow-up with his PCP to recheck electrolytes. - Discharge Data Discharge Date: 04/13/19 Discharge Disposition: Home, Self-Care 01 Condition: Good - Referral to Home Health Primary Care Physician: Sridhar Daley MD - Patient Instructions Diet: Regular Diet as Tolerated, No Alcoholic Beverages - Discharge Plan Prescriptions/Med Rec: Enoxaparin [Lovenox] 120 mg SQ DAILY 5 Days #5 syringe Phosphorus #1 [Neutra-Phos] 250 mg PO QID 5 Days #20 tablet Home Medications: Home Meds Warfarin [Coumadin] 2 mg PO DAILY 03/23/18 [History] Pantoprazole Sodium 40 mg PO DAILY 30 Days #30 tablet. 04/08/18 [Rx] Warfarin [Coumadin] 1 mg PO DAILY 11/09/18 [History] Phosphorus #1 [Neutra-Phos] 250 mg PO QID 5 Days #20 tablet 04/13/19 [Rx] Enoxaparin [Lovenox] 120 mg SQ DAILY 5 Days #5 syringe 04/14/19 [Rx] Patient Handouts: Gastritis, Adult, [id number], Hypokalemia, Phosphorus Salts powder for oral solution Referrals: Sridhar Cox MD [Primary Care Provider] - 04/28/19 10:45 am - Discharge Summary/Plan Comment DC Time >30 min.: No - Patient Data Vitals - Most Recent: Last Vital Signs Temp 36.2 C 04/13/19 12:00 Pulse 78 04/13/19 12:00 Resp 14 04/13/19 12:00 BP 114/74 04/13/19 12:00 Pulse Ox 98 04/13/19 12:00 Weight - Most Recent: 79.5 kg I&O - Last 24 hours: Intake & Output 04/12/19 04/13/19 04/13/19 22:59 06:59 14:59 Intake Total 0 2319 Output Total 200 300 Balance -2018 Lab Results - Last 24 hrs: Laboratory Results - last 24 hr 04/12/19 04/12/19 04/12/19 Range/Units 13:20 13:20 13:20 WBC (4.0-11.0) K/uL RBC (4.50-5.90) M/uL Hgb (13.0-17.0) g/dL Hct (38.0-50.0) % MCV (80.0-98.0) fL MCH (27.0-32.0) pg MCHC (31.0-37.0) g/dL RDW Std Deviation (28.0-62.0) fl RDW Coeff of Jessie (11.0-15.0) % Plt Count (150-400) K/uL MPV (7.40-12.00) fL Neut % (Auto) (48.0-80.0) % Lymph % (Auto) (16.0-40.0) % [place] % (Auto) (0.0-15.0) % Eos % (Auto) (0.0-7.0) % Baso % (Auto) (0.0-1.5) % Neut # (Auto) (1.4-5.7) K/uL Lymph # (Auto) (0.6-2.4) K/uL [place] # (Auto) (0.0-0.8) K/uL Eos # (Auto) (0.0-0.7) K/uL Baso # (Auto) (0.0-0.1) K/uL Nucleated RBC % /100WBC Nucleated RBCs # K/uL INR 1.63 Sodium 136 (136-148) mmol/L Potassium 2.4 L* (3.5-5.1) mmol/L Chloride 95 L (98-107) mmol/L Carbon Dioxide 29.2 (21.0-32.0) mmol/L BUN 5 L (7.0-18.0) mg/dL Creatinine 1.0 (0.8-1.3) mg/dL Est Cr Clr Drug Dosing 72.66 mL/min Estimated GFR (MDRD) > 60.0 ml/min Glucose 137 H (74-106) mg/dL POC Glucose (60-110) mg/dL Calcium 7.7 L (8.5-10.1) mg/dL Phosphorus (2.6-4.7) mg/dL Magnesium 1.1 L (1.8-2.4) mg/dL Total Bilirubin 1.1 H (0.2-1.0) mg/dL AST 29 (15-37) IU/L ALT 18 (14-63) IU/L Alkaline Phosphatase 177 H (46-116) U/L Total Protein 7.3 (6.4-8.2) g/dL Albumin 2.9 L (3.4-5.0) g/dL Globulin 4.4 H (2.6-4.0) g/dL Albumin/Globulin Ratio 0.7 L (0.9-1.6) Lipase 135 (73-393) U/L Urine Color Urine Appearance Urine pH (5.0-8.0) Ur Specific Golden (1.001-1.035) Urine Protein (NEGATIVE) mg/dL Urine Glucose (UA) (NEGATIVE) mg/dL Urine Ketones (NEGATIVE) mg/dL Urine Occult Blood (NEGATIVE) Urine Nitrite (NEGATIVE) Urine Bilirubin (NEGATIVE) Urine Ictotest Urine Urobilinogen (<2.0) EU/dL Ur Leukocyte Esterase (NEGATIVE) 04/12/19 04/12/19 04/12/19 Range/Units 13:20 16:15 21:06 WBC (4.0-11.0) K/uL RBC (4.50-5.90) M/uL Hgb (13.0-17.0) g/dL Hct (38.0-50.0) % MCV (80.0-98.0) fL MCH (27.0-32.0) pg MCHC (31.0-37.0) g/dL RDW Std Deviation (28.0-62.0) fl RDW Coeff of Jessie (11.0-15.0) % Plt Count (150-400) K/uL MPV (7.40-12.00) fL Neut % (Auto) (48.0-80.0) % Lymph % (Auto) (16.0-40.0) % [place] % (Auto) (0.0-15.0) % Eos % (Auto) (0.0-7.0) % Baso % (Auto) (0.0-1.5) % Neut # (Auto) (1.4-5.7) K/uL Lymph # (Auto) (0.6-2.4) K/uL [place] # (Auto) (0.0-0.8) K/uL Eos # (Auto) (0.0-0.7) K/uL Baso # (Auto) (0.0-0.1) K/uL Nucleated RBC % /100WBC Nucleated RBCs # K/uL INR Sodium (136-148) mmol/L Potassium (3.5-5.1) mmol/L Chloride (98-107) mmol/L Carbon Dioxide (21.0-32.0) mmol/L BUN (7.0-18.0) mg/dL Creatinine (0.8-1.3) mg/dL Est Cr Clr Drug Dosing mL/min Estimated GFR (MDRD) ml/min Glucose (74-106) mg/dL POC Glucose 87 (60-110) mg/dL Calcium (8.5-10.1) mg/dL Phosphorus 2.1 L (2.6-4.7) mg/dL Magnesium (1.8-2.4) mg/dL Total Bilirubin (0.2-1.0) mg/dL AST (15-37) IU/L ALT (14-63) IU/L Alkaline Phosphatase (46-116) U/L Total Protein (6.4-8.2) g/dL Albumin (3.4-5.0) g/dL Globulin (2.6-4.0) g/dL Albumin/Globulin Ratio (0.9-1.6) Lipase (73-393) U/L Urine Color YELLOW Urine Appearance CLEAR Urine pH 7.5 (5.0-8.0) Ur Specific Golden <= 1.005 (1.001-1.035) Urine Protein NEGATIVE (NEGATIVE) mg/dL Urine Glucose (UA) NEGATIVE (NEGATIVE) mg/dL Urine Ketones 40 H (NEGATIVE) mg/dL Urine Occult Blood NEGATIVE (NEGATIVE) Urine Nitrite NEGATIVE (NEGATIVE) Urine Bilirubin SMALL H (NEGATIVE) Urine Ictotest NEGATIVE Urine Urobilinogen 2.0 H (<2.0) EU/dL Ur Leukocyte Esterase NEGATIVE (NEGATIVE) 04/13/19 04/13/19 04/13/19 Range/Units 06:01 06:14 06:14 WBC 7.49 (4.0-11.0) K/uL RBC 4.50 (4.50-5.90) M/uL Hgb 14.5 (13.0-17.0) g/dL Hct 42.8 (38.0-50.0) % MCV 95.1 (80.0-98.0) fL MCH 32.2 H (27.0-32.0) pg MCHC 33.9 (31.0-37.0) g/dL RDW Std Deviation 45.8 (28.0-62.0) fl RDW Coeff of Jessie 13 (11.0-15.0) % Plt Count 182 (150-400) K/uL MPV 9.10 (7.40-12.00) fL Neut % (Auto) 61.9 (48.0-80.0) % Lymph % (Auto) 27.0 (16.0-40.0) % [place] % (Auto) 6.9 (0.0-15.0) % Eos % (Auto) 3.3 (0.0-7.0) % Baso % (Auto) 0.9 (0.0-1.5) % Neut # (Auto) 4.6 (1.4-5.7) K/uL Lymph # (Auto) 2.0 (0.6-2.4) K/uL [place] # (Auto) 0.5 (0.0-0.8) K/uL Eos # (Auto) 0.3 (0.0-0.7) K/uL Baso # (Auto) 0.1 (0.0-0.1) K/uL Nucleated RBC % 0.0 /100WBC Nucleated RBCs # 0 K/uL INR Sodium 141 (136-148) mmol/L Potassium 3.2 L (3.5-5.1) mmol/L Chloride 105 (98-107) mmol/L Carbon Dioxide 24.9 (21.0-32.0) mmol/L BUN 1 L (7.0-18.0) mg/dL Creatinine 0.9 (0.8-1.3) mg/dL Est Cr Clr Drug Dosing 80.73 mL/min Estimated GFR (MDRD) > 60.0 ml/min Glucose 86 (74-106) mg/dL POC Glucose 81 (60-110) mg/dL Calcium 7.3 L (8.5-10.1) mg/dL Phosphorus 1.3 L (2.6-4.7) mg/dL Magnesium 2.1 (1.8-2.4) mg/dL Total Bilirubin 0.8 (0.2-1.0) mg/dL AST 26 (15-37) IU/L ALT 14 (14-63) IU/L Alkaline Phosphatase 142 H (46-116) U/L Total Protein 6.7 (6.4-8.2) g/dL Albumin 2.5 L (3.4-5.0) g/dL Globulin 4.2 H (2.6-4.0) g/dL Albumin/Globulin Ratio 0.6 L (0.9-1.6) Lipase (73-393) U/L Urine Color Urine Appearance Urine pH (5.0-8.0) Ur Specific Golden (1.001-1.035) Urine Protein (NEGATIVE) mg/dL Urine Glucose (UA) (NEGATIVE) mg/dL Urine Ketones (NEGATIVE) mg/dL Urine Occult Blood (NEGATIVE) Urine Nitrite (NEGATIVE) Urine Bilirubin (NEGATIVE) Urine Ictotest Urine Urobilinogen (<2.0) EU/dL Ur Leukocyte Esterase (NEGATIVE) 04/13/19 Range/Units 08:07 WBC (4.0-11.0) K/uL RBC (4.50-5.90) M/uL Hgb (13.0-17.0) g/dL Hct (38.0-50.0) % MCV (80.0-98.0) fL MCH (27.0-32.0) pg MCHC (31.0-37.0) g/dL RDW Std Deviation (28.0-62.0) fl RDW Coeff of Jessie (11.0-15.0) % Plt Count (150-400) K/uL MPV (7.40-12.00) fL Neut % (Auto) (48.0-80.0) % Lymph % (Auto) (16.0-40.0) % [place] % (Auto) (0.0-15.0) % Eos % (Auto) (0.0-7.0) % Baso % (Auto) (0.0-1.5) % Neut # (Auto) (1.4-5.7) K/uL Lymph # (Auto) (0.6-2.4) K/uL [place] # (Auto) (0.0-0.8) K/uL Eos # (Auto) (0.0-0.7) K/uL Baso # (Auto) (0.0-0.1) K/uL Nucleated RBC % /100WBC Nucleated RBCs # K/uL INR Sodium (136-148) mmol/L Potassium (3.5-5.1) mmol/L Chloride (98-107) mmol/L Carbon Dioxide (21.0-32.0) mmol/L BUN (7.0-18.0) mg/dL Creatinine (0.8-1.3) mg/dL Est Cr Clr Drug Dosing mL/min Estimated GFR (MDRD) ml/min Glucose (74-106) mg/dL POC Glucose 89 (60-110) mg/dL Calcium (8.5-10.1) mg/dL Phosphorus (2.6-4.7) mg/dL Magnesium (1.8-2.4) mg/dL Total Bilirubin (0.2-1.0) mg/dL AST (15-37) IU/L ALT (14-63) IU/L Alkaline Phosphatase (46-116) U/L Total Protein (6.4-8.2) g/dL Albumin (3.4-5.0) g/dL Globulin (2.6-4.0) g/dL Albumin/Globulin Ratio (0.9-1.6) Lipase (73-393) U/L Urine Color Urine Appearance Urine pH (5.0-8.0) Ur Specific [place] (1.001-1.035) Urine Protein (NEGATIVE) mg/dL Urine Glucose (UA) (NEGATIVE) mg/dL Urine Ketones (NEGATIVE) mg/dL Urine Occult Blood (NEGATIVE) Urine Nitrite (NEGATIVE) Urine Bilirubin (NEGATIVE) Urine Ictotest Urine Urobilinogen (<2.0) EU/dL Ur Leukocyte Esterase (NEGATIVE) Med Orders - Current: Current Medications Enoxaparin Sodium (Lovenox) 80 mg SUBCUT Q12HR [facility] Folic Acid (Folic Acid) 1 mg PO BEDTIME AARON Last Admin: 04/12/19 20:33 Dose: 1 mg Pantoprazole Sodium 40 mg/ (Sodium Chloride) 10 mls @ 300 mls/hr IV Q24H [facility] Lorazepam (Ativan) 0 mg IVPUSH Q4H PRN; Protocol PRN Reason: Withdrawal Symptoms Morphine Sulfate (Morphine) 2 mg IVPUSH Q2H PRN PRN Reason: Pain (severe 7-10) Stop: 04/13/19 15:03 Ondansetron HCl (Zofran) 4 mg IVPUSH Q4H PRN PRN Reason: Nausea Last Admin: 04/12/19 22:13 Dose: 4 mg Ondansetron HCl (Zofran Odt) 4 mg PO Q4H PRN PRN Reason: nausea, able to take PO Thiamine HCl (Vitamin B-1) 100 mg PO BEDTIME AARON Last Admin: 04/12/19 20:32 Dose: 100 mg Discontinued Medications Dextrose/Water (Dextrose 25% In Water) 10 ml IVPUSH ONETIME ONE Stop: 04/13/19 06:12 Last Admin: 04/13/19 06:49 Dose: 10 ml Diphenhydramine HCl (Benadryl) 25 mg PO ONETIME ONE Stop: 04/12/19 21:31 Last Admin: 04/12/19 21:34 Dose: 25 mg Enoxaparin Sodium (Lovenox) 40 mg SUBCUT Q12HR AARON Last Admin: 04/13/19 08:31 Dose: 40 mg Sodium Chloride (Normal Saline) 1,000 mls @ 999 mls/hr IV STAT ONE Stop: 04/12/19 13:44 Last Admin: 04/12/19 13:23 Dose: 999 mls/hr Potassium Chloride 40 meq/ (Sodium Chloride) 270 mls @ 67.5 mls/hr IV ONETIME ONE Stop: 04/12/19 18:49 Last Admin: 04/12/19 14:51 Dose: 67.5 mls/hr Sodium Chloride (Normal Saline) 1,000 mls @ 150 mls/hr IV STAT ONE Stop: 04/12/19 21:23 Last Admin: 04/12/19 14:51 Dose: 150 mls/hr Magnesium Sulfate 4 gm/ Premix 100 mls @ 25 mls/hr IV ONETIME ONE Stop: 04/12/19 19:04 Last Admin: 04/12/19 17:48 Dose: 25 mls/hr Potassium Chloride 40 meq/ (Premix) 100 mls @ 25 mls/hr IV ONETIME ONE Stop: 04/12/19 21:59 Last Admin: 04/12/19 21:26 Dose: 25 mls/hr Pantoprazole Sodium 40 mg/ (Sodium Chloride) 10 mls @ 300 mls/hr IV Q24H [facility] Last Admin: 04/12/19 16:20 Dose: 300 mls/hr Sodium Chloride (Normal Saline) 1,000 mls @ 999 mls/hr IV STAT ONE Stop: 04/12/19 16:58 Last Admin: 04/12/19 17:48 Dose: 999 mls/hr Sodium Chloride (Normal Saline) 1,000 mls @ 125 mls/hr IV ASDIRECTED [facility] Last Admin: 04/13/19 08:24 Dose: 125 mls/hr Potassium Phosphate 30 mmole/ (Sodium Chloride) 510 mls @ 127.5 mls/hr IV NOW ONE Stop: 04/13/19 12:04 Last Admin: 04/13/19 08:13 Dose: 127.5 mls/hr Insulin Aspart (Novolog) 0 unit SUBCUT TIDAC [facility]; Protocol Last Admin: 04/13/19 13:33 Dose: Not Given Iopamidol (Isovue Multipack-370 (76%)) 100 ml IVPUSH ONETIME STA Stop: 04/12/19 17:56 Last Admin: 04/12/19 13:30 Dose: 100 ml Morphine Sulfate (Morphine) 2 mg IVPUSH Q2H PRN PRN Reason: Pain (severe 7-10) Stop: 04/13/19 15:03 Ondansetron HCl (Zofran) 4 mg IVPUSH ONETIME ONE Stop: 04/12/19 13:38 Last Admin: 04/12/19 13:44 Dose: 4 mg <Luis,Hooria - Last Filed: 04/14/19 14:12> Discharge Summary - Hospital Course HPI Initial Comments: I have seen and evaluated the patient and agree with the residents note unless specified in my note - Referral to Home Health Primary Care Physician: Sridhar Daley MD - Patient Data Vitals - Most Recent: Last Vital Signs Temp 36.2 C 04/13/19 16:00 Pulse 84 04/13/19 16:00 Resp 18 04/13/19 16:00 BP 120/75 04/13/19 16:00 Pulse Ox 99 04/13/19 16:00 I&O - Last 24 hours: Intake & Output 04/13/19 04/14/19 04/14/19 22:59 06:59 14:59 Intake Total 1740 Balance 1740 Lab Results - Last 24 hrs: Laboratory Results - last 24 hr 04/13/19 04/13/19 Range/Units 13:52 13:52 Sodium 140 (136-148) mmol/L Potassium 3.1 L (3.5-5.1) mmol/L Chloride 105 (98-107) mmol/L Carbon Dioxide 23.1 (21.0-32.0) mmol/L BUN 1 L (7.0-18.0) mg/dL Creatinine 1.0 (0.8-1.3) mg/dL Est Cr Clr Drug Dosing 72.66 mL/min Estimated GFR (MDRD) > 60.0 ml/min Glucose 133 H (74-106) mg/dL Calcium 7.3 L (8.5-10.1) mg/dL Phosphorus 1.5 L (2.6-4.7) mg/dL Magnesium 2.1 (1.8-2.4) mg/dL Med Orders - Current: Current Medications Discontinued Medications Dextrose/Water (Dextrose 25% In Water) 10 ml IVPUSH ONETIME ONE Stop: 04/13/19 06:12 Last Admin: 04/13/19 06:49 Dose: 10 ml Diphenhydramine HCl (Benadryl) 25 mg PO ONETIME ONE Stop: 04/12/19 21:31 Last Admin: 04/12/19 21:34 Dose: 25 mg Enoxaparin Sodium (Lovenox) 40 mg SUBCUT Q12HR [facility] Last Admin: 04/13/19 08:31 Dose: 40 mg Enoxaparin Sodium (Lovenox) 80 mg SUBCUT Q12HR [facility] Folic Acid (Folic Acid) 1 mg PO BEDTIME [facility] Last Admin: 04/12/19 20:33 Dose: 1 mg Sodium Chloride (Normal Saline) 1,000 mls @ 999 mls/hr IV STAT ONE Stop: 04/12/19 13:44 Last Admin: 04/12/19 13:23 Dose: 999 mls/hr Potassium Chloride 40 meq/ (Sodium Chloride) 270 mls @ 67.5 mls/hr IV ONETIME ONE Stop: 04/12/19 18:49 Last Admin: 04/12/19 14:51 Dose: 67.5 mls/hr Sodium Chloride (Normal Saline) 1,000 mls @ 150 mls/hr IV STAT ONE Stop: 04/12/19 21:23 Last Admin: 04/12/19 14:51 Dose: 150 mls/hr Magnesium Sulfate 4 gm/ Premix 100 mls @ 25 mls/hr IV ONETIME ONE Stop: 04/12/19 19:04 Last Admin: 04/12/19 17:48 Dose: 25 mls/hr Potassium Chloride 40 meq/ (Premix) 100 mls @ 25 mls/hr IV ONETIME ONE Stop: 04/12/19 21:59 Last Admin: 04/12/19 21:26 Dose: 25 mls/hr Pantoprazole Sodium 40 mg/ (Sodium Chloride) 10 mls @ 300 mls/hr IV Q24H [facility] Last Admin: 04/12/19 16:20 Dose: 300 mls/hr Sodium Chloride (Normal Saline) 1,000 mls @ 999 mls/hr IV STAT ONE Stop: 04/12/19 16:58 Last Admin: 04/12/19 17:48 Dose: 999 mls/hr Sodium Chloride (Normal Saline) 1,000 mls @ 125 mls/hr IV ASDIRECTED [facility] Last Admin: 04/13/19 08:24 Dose: 125 mls/hr Pantoprazole Sodium 40 mg/ (Sodium Chloride) 10 mls @ 300 mls/hr IV Q24H [facility] Last Admin: 04/13/19 15:30 Dose: 300 mls/hr Potassium Phosphate 30 mmole/ (Sodium Chloride) 510 mls @ 127.5 mls/hr IV NOW ONE Stop: 04/13/19 12:04 Last Admin: 04/13/19 08:13 Dose: 127.5 mls/hr Insulin Aspart (Novolog) 0 unit SUBCUT TIDAC [facility]; Protocol Last Admin: 04/13/19 13:33 Dose: Not Given Iopamidol (Isovue Multipack-370 (76%)) 100 ml IVPUSH ONETIME STA Stop: 04/12/19 17:56 Last Admin: 04/12/19 13:30 Dose: 100 ml Lorazepam (Ativan) 0 mg IVPUSH Q4H PRN; Protocol PRN Reason: Withdrawal Symptoms Morphine Sulfate (Morphine) 2 mg IVPUSH Q2H PRN PRN Reason: Pain (severe 7-10) Stop: 04/13/19 15:03 Morphine Sulfate (Morphine) 2 mg IVPUSH Q2H PRN PRN Reason: Pain (severe 7-10) Stop: 04/13/19 15:03 Ondansetron HCl (Zofran) 4 mg IVPUSH ONETIME ONE Stop: 04/12/19 13:38 Last Admin: 04/12/19 13:44 Dose: 4 mg Ondansetron HCl (Zofran) 4 mg IVPUSH Q4H PRN PRN Reason: Nausea Last Admin: 04/12/19 22:13 Dose: 4 mg Ondansetron HCl (Zofran Odt) 4 mg PO Q4H PRN PRN Reason: nausea, able to take PO Potassium Chloride (Klor-Con M20) 40 meq PO ONETIME ONE Stop: 04/13/19 15:19 Last Admin: 04/13/19 15:30 Dose: 40 meq Sodium Phosphate (Neutra-Phos) 250 mg PO QID [facility] Last Admin: 04/13/19 15:30 Dose: 250 mg Thiamine HCl (Vitamin B-1) 100 mg PO BEDTIME [facility] Last Admin: 04/12/19 20:32 Dose: 100 mg
[2019-04-13 14:34] LABS: BLOOD UREA NITROGEN,BUN 1 mg/dL (7.0-18.0); CARBON DIOXIDE,CO2 23.1 mmol/L (21.0-32.0); CHLORIDE,CL 105 mmol/L (98-107); GLUCOSE RANDOM 133 mg/dL (74-106); POTASSIUM,K 3.1 mmol/L (3.5-5.1); SODIUM,NA 140 mmol/L (136-148)
[2019-04-13] MEDS ORDERED: Potassium Chloride 20 MEQ Tab.ER PO ONE (15:18)
[2019-04-13] MEDS ORDERED: Phosphorus #1 250 MG Tab PO SCH (15:30)
[2019-04-13] MEDS ORDERED: Pantoprazole 40 MG in Sodium Chloride 0.9% 10 ML IV SCH (16:00)
[2019-04-13 17:14] VITALS: BP 120/75; PULSE 84
[2019-04-13] MEDS ORDERED: Enoxaparin 100 MG/1 ML Syringe SUBCUT SCH (21:00)
== END 2019-04-13 18:45 | disposition home or self-care (01) ==
LOC: MW.ED 12:43 → MW.MS 15:04
PROVIDERS: ADMIT Internal Medicine; ATTEND Internal Medicine
DX: E87.6 Hypokalemia (principal); E83.42 Hypomagnesemia; E86.0 Dehydration; E83.39 Other disorders of phosphorus metabolism; R11.2 Nausea with vomiting, unspecified; Z91.09 Other allergy status, other than to drugs and biological substances; Z86.711 Personal history of pulmonary embolism; Z87.891 Personal history of nicotine dependence; Z79.01 Long term (current) use of anticoagulants; Z79.899 Other long term (current) drug therapy
CPT/HCPCS: 36415; 74177; 80048; 80053; 81003; 82962; 83690; 83735; 84100; 85025; 85610; 93005; 96365; 96375; 99285; A9270; C9113; J1650; J2405; J3475; J3480; J7040; J7050; Q9967; 96361; 96366; 96372; 96376; 99284; G0378

== ENCOUNTER 2019-08-13 19:09 | Emergency (ER) | payer SELFPAY ==
--- NOTE | 2019-08-13 19:42 | EDM.PDOC ---
ED HPI GENERAL MEDICAL PROBLEM - General Chief Complaint: General Stated Complaint: MEDICAL CLEARANCE Time Seen by Provider: 08/13/19 19:25 Source of Information: Reports: Patient History Limitations: Reports: No Limitations - History of Present Illness INITIAL COMMENTS - FREE TEXT/NARRATIVE: HISTORY AND PHYSICAL: History of present illness: Patient is a 59-year-old male who presents to the emergency room with law enforcement for medical screening exam. Patient states he would not be here unless he was requested by law enforcement. The officer is concerned as he is bringing him for lab draw for a DUI. Wanted him evaluated as he does take home medications. Patient states he is asymptomatic and offers no current complaints or concerns. Patient denies any fever, chills, headache, change in vision, syncope or near syncope. Denies any chest pain, back pain, shortness of breath or cough. Denies any abdominal pain, nausea, vomiting, diarrhea, constipation or dysuria. Has not noted any blood in urine or stool. Patient has been eating and drinking appropriately. Review of systems: As per history of present illness and below otherwise all systems reviewed and negative. Past medical history: As per history of present illness and as reviewed below otherwise noncontributory. Surgical history: As per history of present illness and as reviewed below otherwise noncontributory. Social history: See social history for further information Family history: As per history of present illness and as reviewed below otherwise noncontributory. Physical exam: General: Well-developed and well-nourished 59-year-old male. Alert and oriented. Nontoxic-appearing and in no acute distress. Patient is ambulatory in the room without any difficulty. He is answering questions appropriately and in full sentences. HEENT: Atraumatic, normocephalic, pupils equal and reactive bilaterally, negative for conjunctival pallor or scleral icterus, mucous membranes moist, TMs normal bilaterally, throat clear, neck supple, nontender, trachea midline. No drooling or trismus noted. No meningeal signs. No hot potato voice noted. Lungs: Clear to auscultation, breath sounds equal bilaterally, chest nontender. Heart: S1S2, regular rate and rhythm, slightly tachycardic without overt murmur Abdomen: Soft, nondistended, nontender. Skin: Intact, warm, dry. No lesions or rashes noted. Extremities: Atraumatic, moves all extremities per self without difficulty or deficits, negative for cords or calf pain. Neurovascular unremarkable. Neuro: Awake, alert, oriented. Cranial nerves II through XII unremarkable. Cerebellum unremarkable. Motor and sensory unremarkable throughout. Exam nonfocal. Notes: Patient declines any need for diagnostics at this time. He is asymptomatic. He is agreeable to a bedside glucose. Patient will be discharged after he receives his court ordered lab draw per law enforcement. Supportive care measures were reviewed and discussed. Voices understanding and is agreeable to plan of care. Denies any further questions or concerns at this time. Diagnostics: Declines Therapeutics: None Prescription: None Impression: Encounter for medical screening exam Plan: 1. Please monitor the patient routinely per usual. 2. Continue taking your home medications as directed. 3. Follow-up with your primary care provider as we discussed. Return to the ED as needed and as discussed. Definitive disposition and diagnosis as appropriate pending reevaluation and review of above. - Related Data Allergies Allergy/AdvReac Type Severity Reaction Status Date / Time animal dander Allergy Sneezing Verified 08/13/19 19:35 Home Meds: Home Meds Warfarin [Coumadin] 2 mg PO DAILY 03/23/18 [History] Warfarin [Coumadin] 1 mg PO DAILY 11/09/18 [History] Phosphorus #1 [Neutra-Phos] 250 mg PO QID 5 Days #20 tablet 04/13/19 [Rx] Past Medical History - Past Health History Medical/Surgical History: Denies Medical/Surgical History HEENT History: Reports: Other (See Below) Other HEENT History: uses reading glasses, has upper denture but doesn't wear it Cardiovascular History: Reports: None Other Cardiovascular History: "clogged all heart valves" Respiratory History: Reports: PE Other Respiratory History: hx of PE x2, has been on Warfarin for 1 year, last one on friday Gastrointestinal History: Reports: Colon Polyp, GERD, Hemorrhoids, Other (See Below) Genitourinary History: Reports: None Musculoskeletal History: Reports: Fracture Other Musculoskeletal History: hx of fx clavicle and rib Neurological History: Reports: Concussion, Migraines Psychiatric History: Reports: None Endocrine/Metabolic History: Reports: Obesity/BMI 30+ Hematologic History: Reports: Blood Transfusion(s) Other Hematologic History: was recently (about 2 weeks ago) transfused 5 units of blood Immunologic History: Reports: None Oncologic (Cancer) History: Reports: None Dermatologic History: Reports: None - Infectious Disease History Infectious Disease History: Reports: Chicken Pox, Measles, Other (See Below) Other Infectious Disease History: athlete's foot - Past Surgical History Head Surgeries/Procedures: Reports: None HEENT Surgical History: Reports: Other (See Below) Other HEENT Surgeries/Procedures: repair of fx nose x3 GI Surgical History: Reports: Cholecystectomy, Colonoscopy Social & Family History - Family History Family Medical History: Noncontributory HEENT: Reports: Cataract, Impaired Vision OBGYN: Reports: Endocrine/Metabolic: Reports: Diabetes, type II - Caffeine Use Caffeine Use: Reports: Soda ED ROS GENERAL - Review of Systems Review Of Systems: Comprehensive ROS is negative, except as noted in HPI. ED EXAM, GENERAL - Physical Exam Exam: See Below (See dictation) Course - Vital Signs Last Recorded V/S: Last Vital Signs Temp 97.0 F 08/13/19 19:36 Pulse 114 H 08/13/19 19:36 Resp 18 08/13/19 19:36 BP Pulse Ox 96 08/13/19 19:36 Departure - Departure Time of Disposition: 19:42 Disposition: Home, Self-Care 01 Clinical Impression: Encounter for medical screening examination - Discharge Information Referrals: Sridhar Cox MD [Primary Care Provider] - Forms: ED Department Discharge Additional Instructions: The following information is given to patients seen in the emergency department who are being discharged to home. This information is to outline your options for follow-up care. We provide all patients seen in our emergency department with a follow-up referral. The need for follow-up, as well as the timing and circumstances, are variable depending upon the specifics of your emergency department visit. If you don't have a primary care physician on staff, we will provide you with a referral. We always advise you to contact your personal physician following an emergency department visit to inform them of the circumstance of the visit and for follow-up with them and/or the need for any referrals to a consulting specialist. The emergency department will also refer you to a specialist when appropriate. This referral assures that you have the opportunity for follow-up care with a specialist. All of these measure are taken in an effort to provide you with optimal care, which includes your follow-up. Under all circumstances we always encourage you to contact your private physician who remains a resource for coordinating your care. When calling for follow-up care, please make the office aware that this follow-up is from your recent emergency room visit. If for any reason you are refused follow-up, please contact the [facility] Emergency Department at and asked to speak to the emergency department charge nurse. [facility] [id number], [place] [address] [facility] [address] [place] [id number] 1. Please monitor the patient routinely per usual. 2. Continue taking your home medications as directed. 3. Follow-up with your primary care provider as we discussed. Return to the ED as needed and as discussed. Sepsis Event Note - Focused Exam Vital Signs: Vital Signs Temp Pulse Resp Pulse Ox 08/13/19 19:36 97.0 F 114 H 18 96 Date Exam was Performed: 08/13/19 Time Exam was Performed: 19:47
[2019-08-13 20:10] VITALS: BP 141/81; PULSE 110
== END 2019-08-13 20:04 | disposition home or self-care (01) ==
LOC: MW.ED 19:09
DX: Z02.89 Encounter for other administrative examinations (principal); I26.99 Other pulmonary embolism without acute cor pulmonale; E66.9 Obesity, unspecified; Z91.048 Other nonmedicinal substance allergy status; Z79.01 Long term (current) use of anticoagulants; Z68.29 Body mass index [BMI] 29.0-29.9, adult
CPT/HCPCS: 99282; 99283